=== PATIENT | male | born 1940 | race Caucasian/White ===

== ENCOUNTER 2018-12-14 11:18 | Emergency (ER) | payer MEDICARE ==
--- OUTSIDE RECORDS SUMMARY | 2018-12-14 11:29 | XMS REPORT | Continuity of Care Document ---
:1940 External Reference #:[id number] Author Name May Lemos NP Address [address] [place] [address] Care Team Providers Name Role Phone [facility] - Care Team Information Dog Obedience Instructor [phone] [facility] Cricket Perez MD - Family Medicine Care Team Information Dog Obedience Instructor Problems Active Problems Provider Date Obstructive sleep apnea syndrome Cricket Perez M.D. Onset: 08/18/2008 Hypertensive renal disease Cricket Perez M.D. Onset: 09/07/2008 Hyperlipidemia Cricket Perez M.D. Onset: 09/07/2008 Essential hypertension Anna Mora M.D. Onset: 04/27/2009 Obesity Anna Mora M.D. Onset: 04/27/2009 Anxiety state Cricket Perez M.D. Onset: 11/01/2015 Social History Type Date Description Comments Sex Unknown Tobacco Use Start: Unknown Nonsmoker Tobacco Use Start: Unknown Patient has never smoked Smoking Status Reviewed: 10/26/18 Patient has never smoked Allergies, Adverse Reactions, Alerts Active Allergies Reaction Severity Comments Date NKDA 11/15/2010 Pollen 12/08/2014 Dust 12/08/2014 Inactive Allergies Nka Medications Active Medications SIG Qnty Indications Ordering Date Provider Triamcinolone apply to affected 80gm Morris Narvaez 10/26/2018 Acetonide skin on trunk MATY Lemos 0.1% Cream twice daily as needed for up to 14 days Prednisone 3 by mouth every 12tabs Morris Narvaez 10/26/2018 20mg Tablets day x2 days then MATY Lemos 2 by mouth every day x 2 days then 1 by mouth every day x 2 days then stop Tramadol HCL take 1 tablet by 60tabs M15.0 Cricket AAlonzo Perez, 01/11/2017 50mg Tablets mouth every 6 M.D. hours as needed for pain . do not exceed 4 per 24 hours Metoprolol Tartrate take one tablet 60tabs I12.9 Cricket BillAlonzo Perez, 2008 50mg by mouth twice M.D. Tablets daily Vitamin D 1 by mouth every Unknown 1000Unit day otc Tablets Aspirin Regimen Low once daily Unknown Dose Adult 81mg Tablets DR Edgar 1 by mouth twice Unknown Tablets daily History Medications Azithromycin take 2 tablets 6tabs R05 LUÍS Phillips 07/03/2018 - 250mg by mouth today 07/30/2018 Tablets then take 1 tablet daily for next 4 days Ariadne Burnhamabigail take 2 tablets 30caps R05 May Solange 06/22/2018 - 100mg every 8 hours as MATY Lemos 07/30/2018 Capsules needed for cough Immunizations CPT Code Status Date Vaccine Lot # [id number] Given 12/23/2017 High-Dose, Influenza Virus Vacccine-fluzone 65 and older [id number] Given 11/01/2015 Tetanus And Diptheria Adult Preservative Free [id number] >7Yrs 28661 Given 06/30/2014 Pneumococcal Conjugate Vacc-13 [id number] 88542 Given 02/28/2010 DO Not Use Split Influenza Virus Vaccine [id number] 03812 Given 09/07/2008 Pneumococcal Immunization [id number] 34861 Given 07/06/2007 Zostivax [id number] 11370 Given 07/26/2005 Tdap Tetanus, W Pertussis [id number] Vital Signs Date Vital Result Comment 10/26/2018 11:22am BP Systolic 130 mmHg BP Diastolic 72 mmHg Heart Rate 68 /min Body Temperature 98.0 F Respiratory Rate 16 /min Height 70.5 inches 5'10.50" Weight 236.00 lb BMI (Body Mass Index) 33.4 kg/m2 07/30/2018 1:10pm BP Systolic 102 mmHg BP Diastolic 58 mmHg Heart Rate 52 /min Body Temperature 98.1 F Respiratory Rate 16 /min Height 70.5 inches 5'10.50" Weight 232.00 lb BMI (Body Mass Index) 32.8 kg/m2 Results Test Date Facility Test Result H/L Range Note Iron & Iron Binding Capacity 09/07/2018 [facility] Iron 121 g/dL Normal 50- 212 Unsaturated Iron Binding < 299 g/dL Total Iron Binding Capacity 314 g/dL Normal 250-450 Transferrin 224 mg/dL Normal 203-362 % Iron Saturation 39 % Normal 15-55 Laboratory test 09/07/2018 [facility] [place] 90.1 ng/mL Normal 24-336 finding Lipid Profile 07/30/2018 [facility] Lois(fma) Cholesterol 169 mg/dL 120- 200 Triglycerides 136 mg/dL 30-200 HDL Cholesterol 38 mg/dL 30-70 LDL (Calculated) 104 CALC 0-129 VLDL Cholesterol 27 mg/dL 0-50 HDL Risk Factor 4.4 CALC 0.0-4.4 Comprehensive Metabolic 07/30/2018 [facility] Lo[facility](fma) Sodium 135 mEq/L 134-149 Prof Potassium 4.8 mEq/L 3.6-5.5 Chloride 97 mEq/L 94-112 Carbon Dioxide 24 mEq/L 21-32 Glucose 87 mg/dL 70-105 BUN 18 mg/dL 6-26 Creatinine 1.2 mg/dL 0.6-1.4 BUN/Creat Ratio 15.0 CALC 8.0-36.0 Calcium 9.3 mg/dL 8.6-10.2 Total Protein 6.7 g/dL 6.4-8.3 Albumin 4.3 g/dL 3.8-5.5 Globulin 2.4 g/dL 2.0-4.8 A/G Ratio 1.8 CALC 0.6-2.3 Alk. Phosphatase 64 U/L 22-95 Alt (SGPT) 12 U/L 7-35 Ast (Sgot) 20 U/L 5-34 Total Bilirubin 0.8 mg/dL 0.2-1.3 GFR Non- >60 ml/min/1.73m^ >=60 GFR >60 ml/min/1.73m^ >=60 Procedures Date Code Description Status 01/14/2012 39364772 Colonoscopy Completed Medical Devices Description No Information Available Encounters Type Date Location Provider Dx Diagnosis Office Visit 07/03/2018 11:00a Main Office LUÍS Phillips R05 Cough Office Visit 06/22/2018 11:30a Main Office May Lemos NP R05 Cough Assessments Date Code Description Provider 10/26/2018 R21 Rash and other nonspecific skin eruption May Lemos NP 07/30/2018 Z00.01 Encounter for general adult medical Cricket Perez M.D. examination with abnorma 07/30/2018 I12.9 Hypertensive chronic kidney disease with Cricket Perez M.D. 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 gangrene 07/03/2018 R05 Cough Rosalie Jordyn, CAREER PROFESSIONAL 06/22/2018 R05 Cough May Lemos NP Plan of Treatment 10/26/2018 - May Lemos, NPR21 Rash and other nonspecific skin eruptionNew Medication:Triamcinolone Acetonide 0.1 % - apply to affected skin on trunk twice daily as needed for up to 14 daysPrednisone 20 mg - 3 by mouth every day x2 days then 2 by mouth every day x 2 days then 1 by mouth every day x 2 days then stopComments:Supportive Care: avoid new lotions, soaps, laundry detergentavoid sun exposure to rashavoid itching if possible keep rash clean and dryTake medications as directed.If rash worsens or is not responsive to therapy, please return to office or seek medical attention.AllComments: Medication Management Patient Understands medications he 's taking? Yes No Are there Barriers to Adherence? Yes No Has the patient been asked about herbal supplements and therapies, andOTC meds? Yes No Care Plan1. Patient has been queried about patient's goals/preferences and functional/lifestyle goals at relevant visits. If relevant, describe: na2. Treatment goals as explained to the patient: above3. Are there barriers to meeting treatment goals? Yes No If Yes, please describe:4. Self- Management goals as described to the patient: Yes NoAs always, we strongly encourage a healthy diet and making physical activity a part of your every day life. If you have questions about how or where to start, please contact the office.Follow up:Annual Due: 07/2019 Last appointment with : 07/2018 Please contact front office staff to set up the online patient portal Functional Status Description No Information Available Mental Status Description No Information Available Referrals Refer to Reason for Referral Status Appt Date Jazz Hester MD Consult and treat. Office note, labs and Created 08/10/2018 demographics faxed. [facility] [address] [place] [address] [phone]
[2018-12-14 11:38] VITALS: BP 125/83
--- NOTE | 2018-12-14 12:56 | UC ---
Lower Extremity/Ankle HPI - HPI Summary HPI Summary: 78-year-old male comes in with a chief complaint of right calf pain and swelling on for about a month. He has a history of DVT reports of the left leg several years ago and he was on Xarelto but he is not on Xarelto now. No complaint of any chest pain shortness of breath. Feels well otherwise. - History of Current Complaint Chief Complaint: UCLowerExtremity Stated Complaint: PAINFUL LEG Time Seen by Provider: 12/14/18 12:02 Pain Intensity: 6 - Allergies/Home Medications Allergies/Adverse Reactions: Allergies Allergy/AdvReac Type Severity Reaction Status Date / Time No Known Allergies Allergy Verified 12/14/18 11:38 Home Medications: Home Medications Aspirin [Ecotrin] 1 tab PO DAILY 12/14/18 [History Confirmed 12/14/18] PMH/Surg Hx/FS Hx/Imm Hx Previously Healthy: Yes - DVT Cardiovascular History: Hypertension - Surgical History Surgical History: None - Family History Known Family History: Positive: Non-Contributory - Social History Alcohol Use: Rare Substance Use Type: None Smoking Status (MU): Never Smoked Tobacco Review of Systems All Other Systems Reviewed And Are Negative: Yes Constitutional: Positive: Negative Skin: Positive: Negative Eyes: Positive: Blurred Vision ENT: Positive: Negative Respiratory: Positive: Negative Cardiovascular: Positive: Negative Gastrointestinal: Positive: Negative Motor: Positive: Negative Neurovascular: Positive: Negative Musculoskeletal: Positive: Other: - SEE HPI Neurological: Positive: Negative Psychological: Positive: Negative Is Patient Immunocompromised?: No Physical Exam Triage Information Reviewed: Yes Appearance: Well-Appearing, No Pain Distress, Well-Nourished Vital Signs: Initial Vital Signs Temp 98.9 F 12/14/18 11:34 Pulse 51 12/14/18 11:34 Resp 18 12/14/18 11:34 BP 125/83 12/14/18 11:34 Pulse Ox 97 12/14/18 11:34 Vital Signs Reviewed: Yes Eye Exam: Normal Eyes: Positive: Conjunctiva Clear Neck: Positive: Supple Respiratory: Positive: No respiratory distress Musculoskeletal: Positive: Strength Intact, ROM Intact, Other: - Right calf is swollen comparisons of the left is tender to palpation in the posterior aspect. Normal sensation normal capillary refill. Knee and ankle have full range of motion full-strength. Neurological: Positive: Alert Psychological: Positive: Age Appropriate Behavior Skin Exam: Normal Lower Extremity Course/Dx - Course Course Of Treatment: Licensed Master Social Worker: Nicholas Mary Daniel, ([id number]) Soda Dialyzer: DAYANAAR ( NUANCE) Report Date: 12/14/2018 12:04:00 Report Status: Final ====== Start of Report Content Patient Name: LUCAS GRESHAM Medical Record#: [id number] Ordering Physician: Nikita Jerez MD Acct.#: [id number] : Age: 78 Sex: M Location: [facility] Exam Date: 12/14/18 1204 ADM Status: REG ER Order Information: VL LOWER EXT VEINS RIGHT Accession Number: [id number] CPT: 57554 HISTORY: pain rt leg COMPARISONS: March 04, 2017 TECHNIQUE: Multiple transverse and longitudinal ultrasound images were obtained of the right lower extremity from the level of the common femoral vein inferiorly through to the infrapopliteal veins using grayscale, color Doppler, and spectral Doppler imaging with and without compression and with augmentation. Comparison images were obtained of the contralateral common femoral vein. FINDINGS: VEINS: There is chronic appearing thrombus noted within the mid and inferior extent of the right femoral vein and right popliteal vein. This is nonocclusive. This is similar to the previous examination. The remainder of the venous system of the right lower extremity is compressible throughout its course, with normal flow on color Doppler imaging and normal response to augmentation on spectral Doppler imaging. SOFT TISSUES: Unremarkable. OTHER FINDINGS: None. IMPRESSION: <Electronically signed by Nicholas Mary MD in OV> 12/14/18 1253 Dictated By: Nicholas Mary MD Dictated Date/Time: 125 Transcribed Date/Time: 12/14/181251 Copy to: CC:Cricket Perez MD; Nikita Jerez MD Imaging - [facility] Imaging - [facility] - [facility] [address] [address] [place] [address] [place] [address] ph [phone]) ph ) ph ([phone]) End of Report Content I discussed the venous Doppler results with the patient. The results are similar to the March 2017 venous Doppler. Patient has a venous Doppler in October 2016 that had extensive DVT in the right leg. Patient reports that he was treated with his her alto at that time. Patient is on a baby aspirin at this time. I have a page in for the patient's primary care physician Dr. Perez to determine further treatment. The patient does not wish this weight here at urgent care at this time. I am planning on discussing the case with Dr. Perez and ensuring appropriate follow-up for this. - Differential Dx/Diagnosis Provider Diagnosis: Right leg DVT Discharge ED - Sign-Out/Discharge Documenting (check all that apply): Patient Departure All imaging exams completed and their final reports reviewed: Yes - Discharge Plan Condition: Stable Disposition: HOME Patient Education Materials: Deep Vein Thrombosis (ED) Referrals: Cricket Perez MD [Primary Care Provider] - Additional Instructions: FOLLOW UP WITH DR PEREZ TODAY. Have a DVT in her right leg it appears chronic. I'm going to discuss this with Dr. Perez to determine whether or not you need to start on blood thinners again. Either Dr. Perez's office are our office will call you today to let you know further treatment. GO TO THE EMERGENCY DEPARTMENT IF YOUR CONDITION WORSENS; CHEST PAIN, SHORTNESS OF BREATH, YOU FEEL ILL OR ANY QUESTIONS OR CONCERNS. - Billing Disposition and Condition Condition: STABLE Disposition: Home
== END 2018-12-14 13:40 | disposition home or self-care (01) ==
LOC: UCEAST 11:18
DX: I82.401 Acute embolism and thrombosis of unspecified deep veins of right lower extremity (principal); I10 Essential (primary) hypertension; Z79.01 Long term (current) use of anticoagulants; Z79.82 Long term (current) use of aspirin
CPT/HCPCS: 99211; G0463